=== PATIENT | female | born 1965 | race Caucasian/White ===

== ENCOUNTER 2018-10-13 09:14 | Day surgery (SDC) | payer OTHER ==
[~2018-10-13] VITALS: Ht 157.5 cm; Wt 89.0 kg
[2018-10-13 10:13] VITALS: Ht 157.5 cm; Wt 89.0 kg
[2018-10-13 10:34] VITALS: BP 135/81; PULSE 82; RESP 18
[2018-10-13] MEDS ORDERED: ANTIVIRAL MED (10:38)
[2018-10-13] MEDS ORDERED: METFORMIN DAILY (10:38)
[2018-10-13] MEDS ORDERED: IBUPROFEN (10:38)
[2018-10-13] MEDS ORDERED: ALBUTEROL PRN (10:38)
--- NOTE | 2018-10-13 10:58 | PREAC ---
Date/Time of Note Date/Time of Note DATE: 10/13/18 TIME: 10:56 Anesthesia Eval and Record Evaluation Time Pre-Procedure Interview DATE: 10/13/18 TIME: 10:56 Age 53 Sex female NPO: 8 hrs Preoperative diagnosis [facility], Abdominal Pain Planned procedure EGD, Colonoscopy Past Medical History Past Medical History: Includes Endo: Diabetes Pulm: Asthma Infection(s): HIV Surgery & Anesthesia Issues No known issue Meds Anticoagulation: No Beta Kelli within 24 hr: No Reason Beta Kelli not given: Pt. not on B-Kelli Reported Medications [Albuterol Prn] No Conflict Check 10/13/18 [Antiviral Med.(Hiv)] No Conflict Check 10/13/18 [Ibuprofen Daily] No Conflict Check 10/13/18 [Metformin Daily] No Conflict Check 10/13/18 Meds reviewed: Yes Allergies Coded Allergies: No Known Drug Allergies (Verified Allergy, Unknown, 10/13/18) Allergies Reviewed: Yes Labs/Studies Labs Reviewed: Reviewed by anesthesiologist test: N/A Studies: ECG (n/a), CXR (n/a) Pre-procedure Exam Last vitals Vital Signs Date Temp Pulse Resp B/P (MAP) Pulse Ox O2 O2 Flow FiO2 Time Delivery Rate 10/13/18 98.1 82 18 135/81 98 Room Air 10:34 (99) Airway: Adequate mouth opening, Adequate thyromental dist Mallampati: Mallampati II Teeth: Normal Lung: Normal Heart: Normal ASA Physical Status ASA physical status: 3 Emergency: None Planned Anesthetic General/MAC: MAC Planned Pain Management Parenteral pain med Pre-operative Attestations Prior to commencing anesthesia and surgery, the patient was re-evaluated, there was verification of: *The patient's identity *The results of appropriate recent lab work and preoperative vital signs *The above evaluation not changing prior to induction *Anesthetic plan, risk benefits, alternative and complications discussed with patient/family; questions answered; patient/family understands, accepts and wishes to proceed. ZIGGY MEJIA MD Oct 13, 2018 10:58
[2018-10-13] MEDS ORDERED: PROPOFOL 80 ML ONE (11:34)
--- NOTE | 2018-10-13 11:39 | PAC ---
Date/Time of Note Date/Time of Note DATE: 10/13/18 TIME: 11:37 Post-Anesthesia Notes Post-Anesthesia Note Last documented vital signs Vital Signs Date Temp Pulse Resp B/P (MAP) Pulse Ox O2 O2 Flow FiO2 Time Delivery Rate 10/13/18 98.1 82 18 135/81 98 Room Air 11:34 (99) Activity: WNL Respiratory function: WNL Cardiovascular function: WNL Mental status: Baseline Pain reasonably controlled: Yes Hydration appropriate: Yes Nausea/Vomiting absent: Yes ZIGGY MEJIA MD Oct 13, 2018 11:39
[2018-10-13 12:00] VITALS: BP 133/76; PULSE 79; RESP 21
== END 2018-10-13 13:10 | disposition home or self-care (01) ==
LOC: GIL 09:14
PROVIDERS: ATTEND Internal Medicine Gastroenterology
DX: Z12.11 Encounter for screening for malignant neoplasm of colon (principal); K29.30 Chronic superficial gastritis without bleeding; D12.8 Benign neoplasm of rectum; K64.8 Other hemorrhoids; K64.4 Residual hemorrhoidal skin tags; E11.9 Type 2 diabetes mellitus without complications; J45.909 Unspecified asthma, uncomplicated
CPT/HCPCS: 43239; 45380; 82962; 88305; 88312; Z7610